=== PATIENT | male | born 1960 ===

== ENCOUNTER 2025-04-25 06:35 | Day surgery (SDC) | payer MEDICARE ==
[~2025-04-25 06:35] MED LIST: Dextrose 5%-0.45% NaCl 1,000 ML IV SCH; Propofol 200 MG/20 ML SDV ONE
[2025-04-25] MEDS ORDERED: Propofol 200 MG/20 ML SDV IV ONE (06:36)
[2025-04-25] MEDS ORDERED: Lactated Ringers 1,000 ML IV ONE (06:36)
[2025-04-25] MEDS: Lactated Ringers 1,000 ML IV SCH (07:10)
[2025-04-25 08:14] VITALS: BP 124/79; PULSE 62
== END 2025-04-25 08:41 | disposition home or self-care (01) ==
LOC: DL.ENDO 06:35
PROVIDERS: ATTEND Internal Medicine Gastroenterology
DX: Z12.11 Encounter for screening for malignant neoplasm of colon (principal); K64.8 Other hemorrhoids; I10 Essential (primary) hypertension; E66.09 Other obesity due to excess calories
CPT/HCPCS: G0121; J7120; J2704